=== PATIENT | female | born 1935 | race Caucasian/White ===

== ENCOUNTER 2025-03-06 21:29 | Emergency (ER) | payer MEDICARE, MEDICAID ==
[2025-03-06 22:44] LABS: Glucose, Urine (Dipstick) Negative (Negative); Leukocyte Negative (Negative); Protein, Urine (Dipstick) Trace mg/dL (Neg-Trace); Specific Gravity, Urine 1.020 (1.005-1.030)
[2025-03-06 22:49] LABS: CAUTI Indications for Culture Fever or rigors; RBC/HPF 0-3 HPF (0-3); WBC/HPF None Seen HPF (0-3)
[2025-03-06 22:50] LABS: Urine Culture Reflex No No
[2025-03-07] MEDS ORDERED: Acetaminophen 325 MG TAB ONE (00:27)
== END 2025-03-07 01:04 | disposition short-term general hospital (02) ==
LOC: MADERS 21:29
DX: S06.6X0A Traumatic subarachnoid hemorrhage without loss of consciousness, initial encounter (principal); F03.90 Unspecified dementia, unspecified severity, without behavioral disturbance, psychotic disturbance, mood disturbance, and anxiety; U07.1 COVID-19; I10 Essential (primary) hypertension; E11.42 Type 2 diabetes mellitus with diabetic polyneuropathy; I25.10 Atherosclerotic heart disease of native coronary artery without angina pectoris; E03.9 Hypothyroidism, unspecified; Z79.82 Long term (current) use of aspirin; Z79.899 Other long term (current) drug therapy; Z79.890 Hormone replacement therapy; Z86.73 Personal history of transient ischemic attack (TIA), and cerebral infarction without residual deficits; W01.0XXA Fall on same level from slipping, tripping and stumbling without subsequent striking against object, initial encounter; Y93.01 Activity, walking, marching and hiking
CPT/HCPCS: 51702; 70450; 72125; 81001; 87428; G0390